=== PATIENT | female | born 1965 | race African-American/Black ===

== ENCOUNTER 2016-09-07 14:37 | Emergency (ER) ==
[2016-09-07] MEDS ORDERED: ZOFRAN ODT PO ONE (16:29)
--- NOTE | 2016-09-07 16:29 | PROVIDER DOCUMENTATION ---
HPI-Rash/Wound/ReCheck - General Chief Complaint: Rash Stated Complaint: RASH Time Seen by Provider: 09/07/16 16:16 Source: patient Allergies/Adverse Reactions: Allergies Allergy/AdvReac Type Severity Reaction Status Date / Time No Known Allergies Allergy Verified 04/02/15 13:56 Home Medications: Home Medication List Medication Instructions Recorded Confirmed Last Taken Type Albuterol Sulfate Inhaler 2 puff INH [id number] PRN #1 inhaler 03/09/15 04/02/15 Rx [Ventolin Hfa] Albuterol [Albuterol Neb] 1 inh INH 4XDAY PRN #5 neb 03/09/15 04/02/15 04/02/15 Rx Aspirin 81 mg PO DAILY #30 tab 03/09/15 04/02/15 04/02/15 Rx Atenolol 50 mg PO BID #60 tablet 03/09/15 04/02/15 04/02/15 Rx Clonazepam [Klonopin] 0.5 mg PO BID #30 tablet 03/09/15 04/02/15 04/02/15 Rx Fluticasone/Salmeterol [Advair 1 puff INH BID #1 disk.w.dev 03/09/15 04/02/15 Rx 250-50 Diskus] Hydrochlorothiazide 12.5 mg PO DAILY #30 tablet 03/09/15 04/02/15 04/02/15 Rx Hydrocodone/Acetaminophen [[place] 1 tab PO Q4H PRN PRN #24 tablet 03/09/1504/02/15 Rx 7.5-325 Tablet] Lisinopril 20 mg PO DAILY #30 tablet 03/09/15 04/02/15 04/02/15 Rx Sulfamethoxazole/Trimethoprim 1 each PO BID #10 tablet 05/22/16 Unknown Rx [Bactrim Ds Tablet] Hydroxyzine [Atarax] 50 mg PO TID PRN #10 tablet 09/07/16 Unknown Rx Permethrin 5% Cream [Elimite 5% 60 gm .SEE ORDER BID #1 tube 09/07/16 Unknown Rx Cream] - History of Present Illness-Dermatology Nature of Presenting Problem: This pt presents today c complaints of bed bugs. She reports that she went to [place] to visit some family and she now has bites all over her chest and back. She states that this has happened to her before. She denies any other issues or complaints. Location: reports: other (see hpi) Quality: reports: itchy Severity: reports: mild Onset/Duration: reports: 2 days ago Timing: reports: still present Context/Associated Symptoms: reports: insect bite/sting Similar Symptoms Previously?: Yes Recently seen or treated by another doctor?: No Review of Systems - Adult - REVIEW OF SYSTEMS - ADULT Constitutional: reports: no symptoms reported. denies: chills, fever Eyes: reports: no symptoms reported. denies: discharge, dry eyes Ears, Nose, Mouth & Throat: reports: no symptoms reported. denies: ear discharge, ear pain Cardiovascular: reports: no symptoms reported. denies: chest pain, edema Respiratory: reports: no symptoms reported. denies: chronic cough, cough Gastrointestinal: reports: no symptoms reported. denies: abdominal pain, hematemesis Genitourinary: reports: no symptoms reported. denies: dysuria, discharge Musculoskeletal: reports: no symptoms reported. denies: bone pain, back pain Integumentary: reports: see HPI, itching. denies: skin sores/ulcer, skin thickening Neurological: reports: no symptoms reported. denies: ataxia, dizziness/vertigo Psychiatric: reports: no symptoms reported. denies: anxiety, anti-depressant use Endocrine: reports: no symptoms reported Hematologic/Lymphatic: reports: no symptoms reported Allergic/Immunologic: reports: no symptoms reported All Other Systems: Reviewed and Negative Past History - Adult - PAST MEDICAL HISTORY-ADULT Review of Records: reports: Old Records Reviewed, Nursing Assessment Review, Medications Reviewed, Social history reviewed & non-contributory. Major Childhood Illnesses: reports: denies history Cardiovascular: reports: cardiac disease, HTN Respiratory: reports: COPD, sleep apnea Gastrointestinal: reports: GERD Obstetrical/Gynecological: reports: denies history Genitourinary: reports: denies history Musculoskeletal: reports: denies history Neurological: reports: denies history Endocrine/Immune: reports: Diabetes Other Conditions: reports: denies history - PRIOR SURGERIES/PROCEDURES Surgical/Procedure History: reports: cardiac stent (2002), , back/neck - IMMUNIZATION STATUS Childhood Immunizations: See Nurse Assessment Flu Vaccine: See Nurse Assessment - FAMILY HISTORY Family History: reviewed, not pertinent Physical Exam-General - PHYSICAL EXAM-ADULT Initial Vital Signs Reviewed: Yes - CONSTITUTIONAL General Appearance: appears well, alert, no apparent distress - EYES Eyes: PERRL/EOMI, pink conjunctivae - HEAD, EARS, NOSE, MOUTH & THROAT HENMT: normocephalic/atraumatic, moist mucous membranes, normal ENT inspection - NECK Neck: non-tender, full range of motion, supple, normal inspection - RESPIRATORY Respiratory: chest non-tender, lungs clear, normal breath sounds, no pleuratic chest pain, no respiratory distress, no accessory muscle use - CARDIOVASCULAR Cardiovascular: normal peripheral pulses, regular rate, rhythm - GASTROINTESTINAL (ABDOMEN) Abdominal Exam: normal bowel sounds, non tender, soft - MUSCULOSKELETAL Back Exam: normal inspection Extremity: normal range of motion, non-tender, normal gait, normal inspection - SKIN Integumentary: normal turgor, warm/dry, rash - NEUROLOGIC Neurologic: grossly normal, no motor/sensory deficits Progress - PLAN OF CARE/RESULTS Progress/Plan/Lab Results: Vital Signs Temp Pulse Resp BP Pulse Ox 09/07/16 14:49 98.1 F 72 20 129/79 98 No Known Allergies Allergy (Verified 04/02/15 13:56) Albuterol Sulfate Inhaler [Ventolin Hfa] 2 puff INH [id number] PRN #1 inhaler 03/09 Albuterol [Albuterol Neb] 1 inh INH 4XDAY PRN #5 neb 03/09/15 Aspirin 81 mg PO DAILY #30 tab 03/09/15 Atenolol 50 mg PO BID #60 tablet 03/09/15 Clonazepam [Klonopin] 0.5 mg PO BID #30 tablet 03/09/15 Fluticasone/Salmeterol [Advair 250-50 Diskus] 1 puff INH BID #1 disk.w.dev 03/09 Hydrochlorothiazide 12.5 mg PO DAILY #30 tablet 03/09/15 Hydrocodone/Acetaminophen [[place] 7.5-325 Tablet] 1 tab PO Q4H PRN PRN #24 tablet 03/09/15 Lisinopril 20 mg PO DAILY #30 tablet 03/09/15 Sulfamethoxazole/Trimethoprim [Bactrim Ds Tablet] 1 each PO BID #10 tablet 05/22 Departure - Departure Time of Disposition Order: 16:28 DIAGNOSIS: Bed bug bite Qualifiers: Encounter type: initial encounter Qualified Code(s): W57.XXXA - Bitten or stung by nonvenomous insect and other nonvenomous arthropods, initial encounter Disposition: HOME 01 Certified Medical Emergency: Urgent Condition: Good Additional Instructions: Take medication as prescribed. Wash all clothes and linens. Follow up with a manager sas. ED Follow Up Instructions: You have been treated by a care provider in the Emergency Department. These instructions are being provided to you so you can have an understanding of how to care for yourself upon discharge. Upon discharge from the Emergency Department, you are responsible for making arrangements for follow-up care by a physician of your choice. Take all prescribed medications as directed. Return to the Emergency Department immediately for any new or worsening symptoms. You may call the Physician Referral phone number at [phone] to obtain a list of Physicians who are taking new patients. Prescriptions: Permethrin 5% Cream [Elimite 5% Cream] 60 gm .SEE ORDER BID #1 tube Hydroxyzine [Atarax] 50 mg PO TID PRN #10 tablet PRN Reason: Itching Referrals: Erickson Dixon MD [Primary Care Provider] - Loli Sofia MD [STAFF PHYSICIAN] - Attestation - Physician/ TITO Attestation Patient care was provided by Advanced Practice Provider:: Yes Advanced Practice Provider:: Eliceo Damian Advanced Practice Provider documentation review:: The Mid-level provider documentation, treatment plan and medical decision making was reviewed by the physician who agrees with all treatment and medical decision making by the P.
[2016-09-07 16:50] VITALS: BP 112/79
== END 2016-09-07 16:54 | disposition home or self-care (01) ==
LOC: P.ED 14:37
DX: S20.369A Insect bite (nonvenomous) of unspecified front wall of thorax, initial encounter (principal); S30.860A Insect bite (nonvenomous) of lower back and pelvis, initial encounter; W57.XXXA Bitten or stung by nonvenomous insect and other nonvenomous arthropods, initial encounter; L29.9 Pruritus, unspecified; I10 Essential (primary) hypertension; J44.9 Chronic obstructive pulmonary disease, unspecified; E11.9 Type 2 diabetes mellitus without complications; Z95.5 Presence of coronary angioplasty implant and graft; Z79.899 Other long term (current) drug therapy; Z79.82 Long term (current) use of aspirin; Z79.51 Long term (current) use of inhaled steroids
CPT/HCPCS: 99282